=== PATIENT | female | born 1995 | race Caucasian/White ===

== ENCOUNTER 2020-05-21 10:19 | Emergency (ER) | payer OTHER ==
--- NOTE | 2020-05-21 10:27 | ED Physician Documentation ---
PD HPI HEENT - Stated complaint Stated Complaint: LT EAR PX - History obtained from History obtained from: Patient - History of Present Illness Timing - onset: Today, Last night Timing - duration: Days (1) Timing - details: Abrupt onset, Still present Location: Left ear (onset pain left ear with decreased hearing last night. No URI symptoms. No noted injury.) Worsens: Position Associated symptoms: No: Fever, Congestion, Swollen nodes Similar symptoms before: Diagnosis (had simmers ear in the past. No recent ear problems.) Review of Systems Constitutional: denies: Fever Ears: reports: Loss of hearing (just left), Ear pain. denies: Drainage/discharge Nose: denies: Rhinorrhea / runny nose, Congestion Throat: denies: Sore throat Respiratory: denies: Cough GI: denies: Nausea, Vomiting Skin: denies: Rash, Lesions PD PAST MEDICAL HISTORY - Past Medical History Past Medical History: No - Present Medications Home Medications: Ambulatory Orders Medication Instructions Recorded Confirmed Ciprofloxacin/Hydrocortisone 3 drops LEFTEAR TID 5 Days #1 05/21/20 [Cipro Hc Otic Suspension] bottle Doxycycline Monohydrate 100 mg PO BID #10 tablet 05/21/20 - Allergies Allergies/Adverse Reactions: Allergies Allergy/AdvReac Type Severity Reaction Status Date / Time No Known Drug Allergies Allergy Verified 05/21/20 10:34 PD ED PE NORMAL - Vitals Vital signs reviewed: Yes - General General: Alert and oriented X 3, No acute distress, Well developed/nourished - HEENT HEENT: Moist mucous membranes, Pharynx benign, Dentition benign. No: Ears normal (right is okay. Left with cerumen blocking mid canal. Once irrigated out by nursing, the medial canal is seen red with some exudate and swelling. The TM is also appearing red with inflammation. Does not appear fluid behind TM. ) - Neck Neck: Supple, no meningeal sign, No adenopathy - Cardiac Cardiac: RRR, No murmur - Respiratory Respiratory: Clear bilaterally Results - Vitals Vitals: Vital Signs - 24 hr 05/21/20 05/21/20 05/21/20 10:28 10:36 12:01 Temperature 36.6 C 36.6 C 36.8 C Heart Rate 77 82 71 Respiratory 14 14 13 Rate Blood Pressure 137/89 H 130/79 116/98 H O2 Saturation 100 99 96 Oxygen O2 Source Room air PD MEDICAL DECISION MAKING - ED course Complexity details: considered differential (cerumen impaction led to medial OE and also apparent OM.), d/w patient Departure - Departure Disposition: 01 Home, Self Care Clinical Impression: Cerumen impaction Qualifiers: Laterality: left Qualified Code(s): H61.22 - Impacted cerumen, left ear Otitis externa Qualifiers: Otitis externa type: unspecified type Chronicity: acute Laterality: left Qualified Code(s): H60.502 - Unspecified acute noninfective otitis externa, left ear Otitis media Qualifiers: Otitis media type: suppurative Chronicity: acute Laterality: left Recurrence: non-recurrent Spontaneous tympanic membrane rupture: without spontaneous rupture Qualified Code(s): H66.002 - Acute suppurative otitis media without spontaneous rupture of ear drum, left ear Condition: Stable Record reviewed to determine appropriate education?: Yes Instructions: ED Otitis Externa Prescriptions: Ciprofloxacin/Hydrocortisone [Cipro Hc Otic Suspension] 3 drops LEFTEAR TID 5 Days #1 bottle Doxycycline Monohydrate 100 mg PO BID #10 tablet Comments: Like there had been some fluid and germs blocked by the earwax and caused an infection of the inner ear canal as well as the eardrum. We will treat this with oral antibiotics plus antibiotic/anti-inflammatory eardrops. I would anticipate improvement over the next few days. Discharge Date/Time: 05/21/20 12:05
[2020-05-21] MEDS ORDERED: IBUPROFEN 600 MG TABLET PO STA (10:45)
[2020-05-21] MEDS ORDERED: ACETAMINOPHEN 325 MG TABLET PO STA (10:45)
[2020-05-21] MEDS ORDERED: DOXYCYCLINE 100 MG TABLET PO STA (11:52)
[2020-05-21 12:02] VITALS: BP 116/98
== END 2020-05-21 12:05 | disposition home or self-care (01) ==
LOC: ED 10:19
DX: H66.002 Acute suppurative otitis media without spontaneous rupture of ear drum, left ear (principal); H61.22 Impacted cerumen, left ear; H60.502 Unspecified acute noninfective otitis externa, left ear
CPT/HCPCS: 69209; 99282; 99284; A9270